=== PATIENT | female | born 1995 | race Caucasian/White ===

== ENCOUNTER 2018-01-17 19:16 | Emergency (ER) | payer OTHER ==
[~2018-01-17] VITALS: Ht 149.9 cm; Wt 46.8 kg
[2018-01-17] MEDS ORDERED: IOVERSOL 350 MG/ML 100 ML VIAL ONE (22:21)
[2018-01-17] MEDS ORDERED: SODIUM CHLORIDE 0.9% 100 ML ONE (22:21)
[2018-01-17 22:22] LABS: BASOPHILS % (AUTO) 0.5 % (0.0-2.0); EOSINOPHILS % (AUTO) 0.7 % (1.0-6.0); HEMATOCRIT 40.7 % (36-46); LYMPHOCYTES # (AUTO) 3.3 K/uL (1.0-4.8); LYMPHOCYTES % (AUTO) 28.8 % (22.0-44.0); MEAN CORPUSCULAR HEMOGLOBIN 30.3 pg (26.0-34.0); MEAN CORPUSCULAR HGB CONC 34.4 G/dL (31.0-37.0); MEAN CORPUSCULAR VOLUME 88 fL (80-100); MONOCYTES # (AUTO) 0.9 K/uL (0.1-1.0); MONOCYTES % (AUTO) 8.4 % (2.0-9.0); NEUTROPHILS % (AUTO) 61.6 % (40.0-70.0); PLATELET COUNT (AUTO) 330 K/uL (150-450); RED BLOOD CELL COUNT(AUTO) 4.62 MIL/uL (4.00-5.20); RED CELL DISTRIBUTION WIDTH 12.4 % (11.5-14.5)
[2018-01-17 22:35] LABS: ANION GAP 8 mmol/L (8-16); CALCIUM, TOTAL 9.2 mg/dL (8.8-10.5); CARBON DIOXIDE 30 mmol/L (22-29); CHLORIDE 99 mmol/L (98-107); CREATININE 0.72 mg/dL (0.60-1.30); GLOMERULAR FILTR. RATE CALC > 60 mL/min (>60); GLUCOSE,RANDOM 79 mg/dL (70-110); POTASSIUM 3.3 mmol/L (3.5-5.1); SODIUM SERUM 137 mmol/L (136-145); UREA NITROGEN, BLOOD 11 mg/dL (7-18)
[2018-01-17 22:42] LABS: ALANINE AMINOTRANSFERASE 15 U/L (12-78); ALBUMIN 4.2 g/dL (3.4-5.0); ALKALINE PHOSPHATASE 127 U/L (46-116); ASPARTATE AMINOTRANSFERASE 20 U/L (15-37); BILIRUBIN,TOTAL 0.3 mg/dL (0.1-1.0); TOTAL PROTEIN, SERUM 9.3 g/dL (6.4-8.2)
[2018-01-17 23:47] VITALS: BP 117/68
== END 2018-01-18 00:07 | disposition home or self-care (01) ==
LOC: EMS 19:18
DX: R59.0 Localized enlarged lymph nodes (principal); R22.1 Localized swelling, mass and lump, neck; M54.2 Cervicalgia
CPT/HCPCS: 36415; 70491; 80053; 84703; 85025; 99285; J7050; Q9967